=== PATIENT | male | born 1945 | race Caucasian/White ===

== ENCOUNTER 2018-10-19 17:26 | Inpatient (IN) | payer BC, OTHER ==
[2018-10-19 17:39] VITALS: BMI 26.6
[2018-10-19] MEDS ORDERED: SODIUM CHLORIDE 0.9% 1000 ML INFUS.BAG IV ONE (18:45)
--- NOTE | 2018-10-19 18:51 | PDOC ---
Attending Attestation - HPI HPI: 10/19/18 20:18 The patient is a 72 year old male with a significant past medical history of hypertension, hyperlipidemia, diabetes, and arthritis who presents to the emergency department with back pain for 3 months. The patient reports associated knee pain and inability to tolerate weight on his feet when standing. As per the patient's son at bedside, The patient reports some associated urinary frequency for about 1 month. It is noted that the patient went to [facility] earlier today by which they sent him to the ED for further evaluation of possible UTI. The patient received a toradol shot for pain. Denies any other symptoms or complaints. It is noted that the patient recently returned from [facility] 3 weeks ago. - Physicial Exam PE: 10/19/18 20:18 GENERAL: The patient is in no acute distress. HEAD: Normal with no signs of trauma. EYES: PERRLA, EOMI, sclera anicteric, conjunctiva clear. ENT: Ears normal, nares patent, oropharynx clear without exudates. Moist mucous membranes. NECK: Normal range of motion, supple without lymphadenopathy, JVD, or masses. LUNGS: Breath sounds equal, clear to auscultation bilaterally. No wheezes, and no crackles. HEART:(+)tachy. Regular rrhythm, normal S1 and S2 without murmur, rub or gallop. ABDOMEN: Soft, nontender, normoactive bowel sounds. No guarding, no rebound. No masses palpable. EXTREMITIES: Normal range of motion, no edema. No clubbing or cyanosis. No erythema, or tenderness. NEUROLOGICAL: Cranial nerves II through XII grossly intact. Normal speech. No focal neurological deficits. MUSCULOSKELETAL: Back non-tender to palpation, no CVA tenderness SKIN: Warm, Dry, normal turgor, no rashes or lesions noted. Documentation prepared by Misael Faith, acting as district medical examiner for Gale Anderson MD. <Misael Faith - Last Filed: 10/19/18 20:18> - Resident Resident Name: Bernardino Mcnulty - ED Attending Attestation I have performed the following: I have examined & evaluated the patient, The case was reviewed & discussed with the resident, I agree w/resident's findings & plan, Exceptions are as noted - Medical Decision Making 10/19/18 20:06 72 yo M presenting with a complaint of back pain radiating to the leg Was seen in [facility], noted to have a temp 99.5, BP 100/50, elevated WBC, CRIS ( Baseline Cr 0.8) Given toradol for back pain Pt sent to the ER for evaluation of symptoms Pt denies nausea, vomiting, diarrhea No cough No body aches EKG: NSR rate of 76 bpm, axis nml, no st elevation or depression, t waves upright, baseline artifact 10/19/18 20:09 Laboratory Tests 10/19/18 10/19/18 10/19/18 18:56 18:56 18:56 WBC 12.1 H Hgb 15.2 Hct 44.2 Plt Count 168 Sodium 134 L Potassium 4.5 Chloride 98 Carbon Dioxide 26 Anion Gap 10 BUN 30 H Creatinine 1.7 H Random Glucose 291 H Creatine Kinase 313 H Troponin I < 0.02 Lipase 539 H Urine Blood Negative Urine Nitrite Negative Ur Leukocyte Esterase Negative CXR - no consolidation Will place on observation CRIS Dehydration Spinal stenosis with radiculopathy <Gale Anderson - Last Filed: 10/21/18 20:02>
[2018-10-19] MEDS ORDERED: FAMOTIDINE 20 MG/50 ML IVPB 20 MG/50 ML MG IVPB ONE ×2 (19:00→19:09)
[2018-10-19 19:09] LABS: BASO % 0.7 % (0-2.0); EOS % 0.1 % (0-4.5); HEMATOCRIT 44.2 % (35.4-49); HEMOGLOBIN 15.2 GM/dL (11.7-16.9); LYMPH % 9.1 % (8-40); MCH 31.4 pg (25.7-33.7); MCHC 34.4 g/dl (32.0-35.9); MEAN CELL VOLUME 91.4 fl (80-96); MEAN PLT VOLUME 9.9 fl (7.5-11.1); MONO % 5.6 % (3.8-10.2); NEUT % 84.5 % (42.8-82.8); PLATELET COUNT 168 K/MM3 (134-434); RBC 4.84 M/mm3 (4.00-5.60); WHITE BLOOD COUNT 12.1 K/mm3 (4.0-10.0)
--- NOTE | 2018-10-19 19:10 | PDOC ---
History of Present Illness - General History Source: Patient, Family Exam Limitations: Language Barrier (Pt refused loftsman/woman, son at bedside) - History of Present Illness Initial Comments: 10/19/18 19:04 72M with a PMH of HTN, HLD, and DM who presents to the ER with complaints of leg pain. The patient states that he has had years of sciatic back and leg pain. He admits to feeling dysuria over the past 3 days associated with lightheadedness and generalized weakness. He denies any CP, SOB, fever, chills, nausea, vomiting, but admits to diarrhea and lightheadedness. He states that today, his leg pain was different and he felt weak enough that his leg gave way. He otherwise denies any complaints;. <Bernardino Mcnulty - Last Filed: 10/19/18 22:09> <Joaquin Moreno - Last Filed: 10/20/18 02:44> - General Chief Complaint: Pain, Acute Stated Complaint: PCP SENT - [facility] Time Seen by Provider: 10/19/18 18:29 Past History - Past Medical History COPD: No Diabetes: Yes HTN: Yes Hypercholesterolemia: Yes - Immunization History Immunization Up to Date: Yes - Suicide/Smoking/Psychosocial Hx Smoking History: Never smoked Hx Alcohol Use: No Drug/Substance Use Hx: No Substance Use Type: None <Bernardino Mcnulty - Last Filed: 10/19/18 22:09> <Joaquin Moreno - Last Filed: 10/20/18 02:44> - Past Medical History Allergies/Adverse Reactions: Allergies Allergy/AdvReac Type Severity Reaction Status Date / Time No Known Allergies Allergy Verified 10/19/18 19:46 Home Medications: Ambulatory Orders Amlodipine Besylate [Norvasc -] 5 mg PO DAILY 10/19/18 Aspirin [ASA -] 81 mg PO DAILY 10/19/18 Atorvastatin Ca [Lipitor] 20 mg PO DAILY 10/19/18 Diclofenac Sodium [Diclofenac Sodium ER] 100 mg PO DAILY 10/19/18 Gabapentin [Neurontin] 600 mg PO TID 10/19/18 Ibuprofen 600 mg PO Q8H PRN 10/19/18 Lisinopril 10 mg PO DAILY 10/19/18 Metformin HCl [Metformin HCl ER] 500 mg PO BID 10/19/18 Naproxen [Naprosyn -] 500 mg PO Q12H PRN 10/19/18 Oxycodone HCl/Acetaminophen [Percocet 5-325 mg Tablet] 1 tab PO Q4H PRN Review of Systems - Review of Systems Able to Perform ROS?: Yes Comments:: 10/19/18 19:10 GENERAL/CONSTITUTIONAL: Positive for generalized weakness. No fever or chills. HEAD, EYES, EARS, NOSE AND THROAT: No change in vision. No ear pain or discharge. No sore throat. CARDIOVASCULAR: Positive for lightheadedness. No chest pain, palpitations. RESPIRATORY: No cough, wheezing, shortness of breath, or hemoptysis. GASTROINTESTINAL: No nausea, vomiting, diarrhea, constipation, or abdominal pain. GENITOURINARY: Positive for dysuria. No frequency, hematuria, or change in urination. MUSCULOSKELETAL: Positive for low back pain and R knee pain. SKIN: No rash or lesions. NEUROLOGIC: No headache, numbness, tingling, focal weakness, loss of consciousness, or change in strength/sensation. Is the patient limited Armenian proficient: No <Bernardino Mcnulty - Last Filed: 10/19/18 22:09> *Physical Exam - Vital Signs Last Vital Signs Temp Pulse Resp BP Pulse Ox 99.0 F 87 20 114/63 98 10/19/18 17:32 10/19/18 18:30 10/19/18 18:30 10/19/18 18:30 10/19/18 18:30 - Physical Exam Comments: 10/19/18 19:12 GENERAL: Well developed, well nourished. Awake and alert. No acute distress. HEENT: Normocephalic, atraumatic. Hearing grossly normal. Moist mucous membranes. PERRLA, EOMI. No conjunctival pallor. NECK: Supple. Full ROM. No JVD. CARDIOVASCULAR: Regular rate and rhythm. No murmurs, rubs, or gallops. PULMONARY: No evidence of respiratory distress. Lungs clear to auscultation bilaterally. No wheezing, rales or rhonchi. ABDOMINAL: Soft. Non-tender. Non-distended. No rebound or guarding. GENITOURINARY: R CVA tenderness. MUSCULOSKELETAL: TTP over R SI joint. Limited ROM in R leg. EXTREMITIES: No cyanosis. No clubbing. No edema. No calf tenderness or swelling. SKIN: Warm and dry. Normal capillary refill. No rashes. No jaundice. NEUROLOGICAL: Alert, awake, appropriate. Cranial nerves 2-12 grossly intact. Normal speech. Gait is normal without ataxia. PSYCHIATRIC: Cooperative. Good eye contact. Appropriate mood and affect. <Bernardino Mcnulty - Last Filed: 10/19/18 22:09> - Vital Signs Last Vital Signs Temp Pulse Resp BP Pulse Ox 98.9 F 87 16 130/71 98 10/20/18 02:05 10/20/18 02:05 10/20/18 02:05 10/20/18 02:05 10/19/18 20:59 <Joaquin Moreno - Last Filed: 10/20/18 02:44> Moderate Sedation - Procedure Monitoring Vital Signs: Procedure Monitoring Vital Signs Temperature 99.0 F 10/19/18 17:32 Pulse Rate 87 10/19/18 18:30 Respiratory Rate 20 10/19/18 18:30 Blood Pressure 114/63 10/19/18 18:30 O2 Sat by Pulse Oximetry (%) 98 10/19/18 18:30 <Bernardino Mcnulty - Last Filed: 10/19/18 22:09> - Procedure Monitoring Vital Signs: Procedure Monitoring Vital Signs Temperature 98.9 F 10/20/18 02:05 Pulse Rate 87 10/20/18 02:05 Respiratory Rate 16 10/20/18 02:05 Blood Pressure 130/71 10/20/18 02:05 O2 Sat by Pulse Oximetry (%) 98 10/19/18 20:59 <Joaquin Moreno - Last Filed: 10/20/18 02:44> ED Treatment Course - LABORATORY CBC & Chemistry Diagram: 10/19/18 18:56 10/19/18 18:56 <Bernardino Mcnulty - Last Filed: 10/19/18 22:09> - LABORATORY CBC & Chemistry Diagram: 10/19/18 18:56 10/19/18 18:56 - ADDITIONAL ORDERS Additional order review: Laboratory Results 10/19/18 10/19/18 10/19/18 18:56 18:56 18:56 PT with INR 12.40 INR 1.05 Sodium 134 L Potassium 4.5 Chloride 98 Carbon Dioxide 26 Anion Gap 10 BUN 30 H Creatinine 1.7 H Creat Clearance w eGFR 39.93 Random Glucose 291 H Calcium 8.8 Total Bilirubin 1.1 H AST 20 ALT 30 Alkaline Phosphatase 76 Creatine Kinase 313 H Creatine Kinase Index 0.5 CK-MB (CK-2) 1.8 Troponin I < 0.02 Total Protein 6.6 Albumin 3.2 L Lipase 539 H Urine Color Yellow Urine Appearance Clear Urine pH 5.0 Ur Specific [place] 1.024 Urine Protein Negative Urine Glucose (UA) 3+ H Urine Ketones Negative Urine Blood Negative Urine Nitrite Negative Urine Bilirubin Negative Urine Urobilinogen Negative Ur Leukocyte Esterase Negative 10/19/18 18:56 RBC 4.84 MCV 91.4 MCHC 34.4 RDW 14.0 MPV 9.9 Neutrophils % 84.5 H Lymphocytes % 9.1 Monocytes % 5.6 Eosinophils % 0.1 Basophils % 0.7 - Medications Given in the ED: ED Medications Discontinued Medications Generic Name Dose Route Start Last Admin Trade Name Freq PRN Reason Stop Dose Admin Famotidine/Sodium Chloride 20 mg in 50 mls @ 100 mls/hr 10/19/18 19:00 19:09 Pepcid 20 Mg Premixed Ivpb - IVPB 10/19/18 19:29 100 mls/hr ONCE ONE Administration Sodium Chloride 1,000 ml 10/19/18 18:45 10/19/18 19:00 Normal Saline - IV 10/19/18 18:46 1,000 ml ONCE ONE Administration <Joaquin Moreno - Last Filed: 10/20/18 02:44> Medical Decision Making - Medical Decision Making 10/19/18 19:12 The patient is a 72M with a PMH of uncontrolled HTN, DM, HLD who presents to the ER with 3 days of weakness and diarrhea which caused his leg to give way today. Concern for ACS, arrhythmia, and diarrhea causing electrolyte abnormalities. Pending labs and imaging. He went to a UC today and received toradol and currently states that his pain from sciatica is controlled. 10/19/18 20:09 WBC 12. Cr 1.7 indicating CRIS. Giving fluids. Lipase 539 but pt has no abdominal pain but does admit to diarrhea. Will order CXR to look at possible PNA or other causes of weakness/lightheadedness. 10/19/18 21:40 I have endorsed the patient to Dr. Goss for admission. Will order CT of lumbar spine for evaluation of urinary incontinence per admitting attending. <Bernardino Mcnulty - Last Filed: 10/19/18 22:09> *DC/Admit/Observation/Transfer - Discharge Dispostion Decision to Admit order: Yes <Bernardino Mcnulty - Last Filed: 10/19/18 22:09> - Discharge Dispostion Decision to Admit order: No - Transfer to Acute Care Facility Receiving Facility: [facility]. <Joaquin Moreno - Last Filed: 10/20/18 02:44> Diagnosis at time of Disposition: Lightheadedness, CRIS (acute kidney injury) Lower back pain Qualifiers: Chronicity: chronic Back pain laterality: right Sciatica presence: with sciatica Sciatica laterality: sciatica of right side Qualified Code(s): M54.41 - Lumbago with sciatica, right side - Discharge Dispostion Disposition: TRANSFER ACUTE CARE/OTHER HOSP Condition at time of disposition: Guarded
[2018-10-19 19:11] LABS: URINE APPEARANCE CLEAR; URINE BILIRUBIN NEGATIVE (<2.0 mg/dL); URINE COLOR YELLOW; URINE GLUCOSE (UA) 3+ (NEGATIVE); URINE KETONE NEGATIVE (NEGATIVE); URINE LEUK ESTERASE NEGATIVE (NEGATIVE); URINE NITRITE NEGATIVE (NEGATIVE); URINE PROTEIN NEGATIVE (NEGATIVE); URINE UROBILINOGEN NEGATIVE mg/dL (0.2-1.0)
[2018-10-19 19:43] LABS: ALBUMIN 3.2 g/dl (3.4-5.0); ALK PHOS 76 U/L (45-117); ANION GAP 10 MMOL/L (8-16); BILIRUBIN,TOTAL 1.1 mg/dL (0.2-1); BLOOD UREA NITROGEN 30 mg/dL (7-18); CALCIUM 8.8 mg/dL (8.5-10.1); CHLORIDE 98 mmol/L (98-107); CO2 26 mmol/L (21-32); CREATININE 1.7 mg/dL (0.55-1.3); GLUCOSE,RANDOM 291 mg/dL (74-106); LIPASE 539 U/L (73-393); POTASSIUM 4.5 mmol/L (3.5-5.1); SGOT/AST 20 U/L (15-37); SGPT/ALT 30 U/L (13-61); SODIUM 134 mmol/L (136-145); TOT PROT 6.6 g/dl (6.4-8.2)
[2018-10-19 21:42] LABS: INR 1.05 (0.83-1.09); PROTHROMBIN TIME (PATIENT) 12.4 SEC (9.7-13.0)
[2018-10-19] MEDS ORDERED: DOCUSATE SODIUM 100 MG CAPSULE (FP) PO PRN (22:09)
[2018-10-19] MEDS ORDERED: MORPHINE SULFATE 2 MG/ML VIAL IVPUSH PRN (22:13)
--- NOTE | 2018-10-19 22:16 | PN ---
Teaching Attending Note Name of Resident: Declan Celis ATTENDING PHYSICIAN STATEMENT I saw and evaluated the patient. I reviewed the resident's note and discussed the case with the resident. I agree with the resident's findings and plan as documented. SUBJECTIVE: OBJECTIVE: ASSESSMENT AND PLAN: this is a 72 y/o male patient with hx of chronic back HTN, DL, and NIDDM patient recently came from [facility] stating that for the past week, he has been having worse urine loss that the patient cannot hold his urine. today the patient was in the bathroom when his legs buckled and went to the ground the called the son to come to help him out with picking him up, they went to the urgent care and then he was sent to the hospital for further evaluation PE: weakness of the right leg 1/5 motor strength, decreased sensation (possible 2/2 diabetes) back pain and limited range of motion of the right leg 10degress range of motion tenderness at the lower back S1 and S2 RRR lungs CTA with good air entry abdomen soft non-tender. assessment: - admit he patient [place] [facility] [place] - obtain a CT of the lower ext - sonogram of the gallbladder to evaluate for urine retention - urine analysis -patient has elevated WBC without signs of fever or chills -will consider antibiotics if the patient spikes a fever after cultures obtained patient was accepted to [facility] for evaluation for possible spinal cord compression -
--- NOTE | 2018-10-19 22:16 | HP ---
CHIEF COMPLAINT: RLE weakness, pain, urinary incontinence PCP: HISTORY OF PRESENT ILLNESS: 72 yo Male with PMH Chronic back pain, NIDDM, HTN, HLD, admitted with worsening of lower back pain, new onset RLE weakness and pain and urinary incontinence. He states that his back pain has been worsening over the last few months but the weakness and incontinence started about 3 days ago. He states that today he was in the bathroom when his leg buckled and gave out. He lowered himself to the ground and required assistance from his son in order to get up. He initially went to urgent care who recommended he come to the hospital for further evaluation. He denies any fevers or chills, abdominal pain or nausea. Denies any burning on urination or hematuria. He denies any bowel incontinence, though he does endorse diarrhea also during the last 3 days. ER course was notable for: (1) 1L NS (2) Famotidine (3) Recent Travel: recently came from [place] PAST MEDICAL HISTORY: Chronic back pain, NIDDM, HTN, HLD PAST SURGICAL HISTORY: Denies Social History: Smoking: Denies Alcohol: Rarely Drugs: Denies Family History: Allergies No Known Allergies Allergy (Verified 10/19/18 19:46) HOME MEDICATIONS: Home Medications Medication Instructions Recorded Amlodipine Besylate [Norvasc -] 5 mg PO DAILY 10/19/18 Aspirin [ASA -] 81 mg PO DAILY 10/19/18 Atorvastatin Ca [Lipitor] 20 mg PO DAILY 10/19/18 Diclofenac Sodium [Diclofenac 100 mg PO DAILY 10/19/18 Sodium ER] Gabapentin [Neurontin] 600 mg PO TID 10/19/18 Ibuprofen 600 mg PO Q8H PRN 10/19/18 Lisinopril 10 mg PO DAILY 10/19/18 Metformin HCl [Metformin HCl ER] 500 mg PO BID 10/19/18 Naproxen [Naprosyn -] 500 mg PO Q12H PRN 10/19/18 Oxycodone HCl/Acetaminophen 1 tab PO Q4H PRN 10/19/18 [Percocet 5-325 mg Tablet] REVIEW OF SYSTEMS CONSTITUTIONAL: Absent: fever, chills, diaphoresis, generalized weakness, malaise, loss of appetite, weight change HEENT: Absent: rhinorrhea, nasal congestion, throat pain, throat swelling, difficulty swallowing, mouth swelling, ear pain, eye pain, visual changes CARDIOVASCULAR: Absent: chest pain, syncope, palpitations, irregular heart rate, lightheadedness , peripheral edema RESPIRATORY: Absent: cough, shortness of breath, dyspnea with exertion, orthopnea, wheezing, stridor, hemoptysis GASTROINTESTINAL: diarrhea, Absent: abdominal pain, abdominal distension, nausea, vomiting, constipation, melena, hematochezia GENITOURINARY: Absent: dysuria, frequency, urgency, hesitancy, hematuria, flank pain, genital pain MUSCULOSKELETAL: back pain, RLE pain and weakness Absent: myalgia, arthralgia, joint swelling, neck pain SKIN: Absent: rash, itching, pallor HEMATOLOGIC/IMMUNOLOGIC: Absent: easy bleeding, easy bruising, lymphadenopathy, frequent infections ENDOCRINE: Absent: unexplained weight gain, unexplained weight loss, heat intolerance, cold intolerance NEUROLOGIC: urinary incontinence Absent: headache, focal weakness or paresthesias, dizziness, unsteady gait, seizure, mental status changes, PSYCHIATRIC: Absent: anxiety, depression, suicidal or homicidal ideation, hallucinations. PHYSICAL EXAMINATION Vital Signs - 24 hr 10/19/18 10/19/18 10/19/18 17:32 18:30 20:59 Temperature 99.0 F Pulse Rate 90 Pulse Rate [ 87 82 Left Radial] Respiratory 16 20 18 Rate Blood Pressure 91/48 L Blood Pressure 114/63 122/66 [Right Arm] O2 Sat by Pulse 94 L 98 98 Oximetry (%) GENERAL: A&O, no acute distress HEAD: Normocephalic, atraumatic. EARS, NOSE, THROAT: oropharynx clear without exudates. Moist mucous membranes. NECK: supple without lymphadenopathy LUNGS: CTA b/l, no crackles or wheezes HEART: Regular rate and rhythm, normal S1 and S2 without murmur ABDOMEN: Soft, nontender to palpation, normoactive bowel sounds MUSCULOSKELETAL: Tenderness to palpation R lumbar spine EXTREMITIES: 2+ pulses, warm, well-perfused. No peripheral edema. NEUROLOGICAL: Cranial nerves II-XII grossly intact. Normal speech. 2/5 strength RLE, sensation in tact b/l PSYCHIATRIC: Cooperative. Good eye contact. Appropriate mood and affect. Laboratory Results - last 24 hr 10/19/18 10/19/18 10/19/18 18:56 18:56 18:56 WBC 12.1 H RBC 4.84 Hgb 15.2 Hct 44.2 MCV 91.4 MCH 31.4 MCHC 34.4 RDW 14.0 Plt Count 168 MPV 9.9 Absolute Neuts (auto) 10.2 H Neutrophils % 84.5 H Lymphocytes % 9.1 Monocytes % 5.6 Eosinophils % 0.1 Basophils % 0.7 Nucleated RBC % 0 PT with INR 12.40 INR 1.05 Sodium Potassium Chloride Carbon Dioxide Anion Gap BUN Creatinine Creat Clearance w eGFR Random Glucose Calcium Total Bilirubin AST ALT Alkaline Phosphatase Creatine Kinase Creatine Kinase Index CK-MB (CK-2) Troponin I Total Protein Albumin Lipase Urine Color Yellow Urine Appearance Clear Urine pH 5.0 Ur Specific [place] 1.024 Urine Protein Negative Urine Glucose (UA) 3+ H Urine Ketones Negative Urine Blood Negative Urine Nitrite Negative Urine Bilirubin Negative Urine Urobilinogen Negative Ur Leukocyte Esterase Negative 10/19/18 18:56 WBC RBC Hgb Hct MCV MCH MCHC RDW Plt Count MPV Absolute Neuts (auto) Neutrophils % Lymphocytes % Monocytes % Eosinophils % Basophils % Nucleated RBC % PT with INR INR Sodium 134 L Potassium 4.5 Chloride 98 Carbon Dioxide 26 Anion Gap 10 BUN 30 H Creatinine 1.7 H Creat Clearance w eGFR 39.93 Random Glucose 291 H Calcium 8.8 Total Bilirubin 1.1 H AST 20 ALT 30 Alkaline Phosphatase 76 Creatine Kinase 313 H Creatine Kinase Index 0.5 CK-MB (CK-2) 1.8 Troponin I < 0.02 Total Protein 6.6 Albumin 3.2 L Lipase 539 H Urine Color Urine Appearance Urine pH Ur Specific [place] Urine Protein Urine Glucose (UA) Urine Ketones Urine Blood Urine Nitrite Urine Bilirubin Urine Urobilinogen Ur Leukocyte Esterase ASSESSMENT/PLAN: 72 yo Male with PMH Chronic back pain, NIDDM, HTN, HLD, admitted with worsening of lower back pain, new onset RLE weakness and pain and urinary incontinence Urinary incontinence -CT lumbar spine pending to rule out spinal abscess/obvious cord compression -Bladder US to evaluate for urinary retention -UA negative with the exception of glucose which could contribute to increased urinary frequency but less likely incontinence -Elevated BUN/Cr noted Renal US to evaluate for hydro with possibility of retaining urine RLE pain and weakness -Likely acute worsening of lower back pain with possible nerve root impingement -Pain control with long acting morphine 15 mg PO BID -Breakthrough with Morphine 1 mg IV Q4 PRN, discussed with patient to only request prn when having significant breakthrough pain -CT Lumbar spine pending NIDDM -BGMs ACHS -Insulin sliding scale HTN -Norvasc 5 mg PO Daily HLD -Lipitor 20 mg PO HS DVT Prophylaxis -Heparin 5000 units SQ TID FEN -Fluids: none -Electrolytes: No electrolyte abnormalities, BMP in AM -Nutrition: Diabetic/Na controlled diet Disposition Med/Surg Visit type - Emergency Visit Emergency Visit: Yes ED Registration Date: 10/19/18 Care time: The patient presented to the Emergency Department on the above date and was hospitalized for further evaluation of their emergent condition. - New Patient This patient is new to me today: Yes Date on this admission: 10/19/18 - Critical Care Critical Care patient: No
[2018-10-19] MEDS ORDERED: HEPARIN NA (PORCINE) 5,000 UNITS/ML 1ML VIAL SQ SCH (22:30)
[2018-10-19] MEDS ORDERED: HEPARIN NA (PORCINE) 5,000 UNITS/ML 1ML VIAL ONE (22:41)
[2018-10-20] MEDS ORDERED: DEXAMETHASONE SOD PHOSPHATE 4 MG/1 ML VIAL ONE (00:33)
[2018-10-20] MEDS ORDERED: DEXAMETHASONE SOD PHOSPHATE 4 MG/1 ML VIAL IVPUSH SCH (02:00)
[2018-10-20 02:17] VITALS: BP 130/71; PULSE 87; TEMP 98.9
[2018-10-20] MEDS ORDERED: morphine SO4 SUSTAINED ACTING 15 MG TABLET.SA PO SCH ×2 (06:00→10:00)
[2018-10-20] MEDS ORDERED: INSULIN SLIDING SCALE (NOVOLOG) 1 VIAL SQ SCH (07:00)
--- NOTE | 2018-10-20 19:06 | EKG ---
Test Reason : Blood Pressure : / mmHG Vent. Rate : 076 BPM Atrial Rate : 076 BPM P-R Int : 150 ms QRS Dur : 100 ms QT Int : 396 ms P-R-T Axes : 036 038 028 degrees QTc Int : 445 ms NORMAL SINUS RHYTHM NONSPECIFIC T WAVE ABNORMALITY ABNORMAL ECG WHEN COMPARED WITH ECG OF 31-MAY-2009 00:20, VENT. RATE HAS DECREASED BY 73 BPM Confirmed by KARTHIK JOSEPH MD ([id number]) on 10/20/2018 7:06:13 PM Referred By: Confirmed By:KARTHIK JOSEPH MD
--- NOTE | 2018-10-21 08:03 | PN ---
Progress Note, Physician - Current Medication List Current Medications: Active Medications Dexamethasone Sodium Phosphate (Decadron Injection -) 4 mg IVPUSH Q8H-IV [facility] Last Admin: 10/20/18 01:38 Dose: 4 mg Docusate Sodium (Colace -) 100 mg PO Q8H PRN PRN Reason: CONSTIPATION Heparin Sodium (Porcine) (Heparin -) 5,000 unit SQ TID [facility] Last Admin: 10/19/18 22:46 Dose: 5,000 unit Insulin Aspart (Novolog Vial Sliding Scale -) 1 vial SQ ACHS [facility]; Protocol Morphine Sulfate (Morphine Sulfate) 1 mg IVPUSH Q4H PRN PRN Reason: PAIN LEVEL 7 - 10 Morphine Sulfate (Ms Contin -) 15 mg PO BID@0600,1800 [facility] - Objective Vital Signs: Vital Signs Temperature 98.9 F 10/20/18 02:05 Pulse Rate 87 10/20/18 02:05 Respiratory Rate 16 10/20/18 02:05 Blood Pressure 130/71 10/20/18 02:05 O2 Sat by Pulse Oximetry (%) 98 10/19/18 20:59 Labs: CBC, BMP 10/19/18 18:56 10/19/18 18:56 INR, PTT INR 1.05 (0.83-1.09) 10/19/18 18:56
--- NOTE | 2018-10-22 14:57 | DS ---
Physical Exam: SUBJECTIVE: Please see H&P for subjective and objective portion including physical exam OBJECTIVE: LABS HOSPITAL COURSE: Date of Admission:10/19/18 Date of Discharge: 10/22/18 CT lumbar spine noted with possible cord compression around the L4 area. Neurosurgery was unable to be contacted after two attempts via answering service. Pt was transferred to [facility] for further evaluation and management as he would be unable to receive and emergent MRI overnight and neurosurgery was unable to be contacted. Minutes to complete discharge: 35 Discharge Summary Reason For Visit: ACUTE KIDNEY INJURY,LOW BACK PAIN, Condition: Stable - Instructions Diet, Activity, Other Instructions: Transferred to [place] following CT lumbar spine initial read as possible central canal stenosis. In conjunction with urinary incontinence, significant weakness in RLE, and inability to reach neurosurgery after multiple attempts, Transfer was initiated to [facility] prior to admission up to the Med/Surg Floors. Disposition: TRANSFER ACUTE CARE/OTHER HOSP - Home Medications Comprehensive Discharge Medication List: Ambulatory Orders Amlodipine Besylate [Norvasc -] 5 mg PO DAILY 10/19/18 Aspirin [ASA -] 81 mg PO DAILY 10/19/18 Atorvastatin Ca [Lipitor] 20 mg PO DAILY 10/19/18 Diclofenac Sodium [Diclofenac Sodium ER] 100 mg PO DAILY 10/19/18 Gabapentin [Neurontin] 600 mg PO TID 10/19/18 Ibuprofen 600 mg PO Q8H PRN 10/19/18 Lisinopril 10 mg PO DAILY 10/19/18 Metformin HCl [Metformin HCl ER] 500 mg PO BID 10/19/18 Naproxen [Naprosyn -] 500 mg PO Q12H PRN 10/19/18 Oxycodone HCl/Acetaminophen [Percocet 5-325 mg Tablet] 1 tab PO Q4H PRN This patient is new to me today: No Emergency Visit: Yes ED Registration Date: 10/19/18 Care time: The patient presented to the Emergency Department on the above date and was hospitalized for further evaluation of their emergent condition. Critical Care patient: No - Discharge Referral Referred to [facility] No
== END 2018-10-20 03:12 | disposition short-term general hospital (02) | DRG 92 ==
LOC: JER 17:26 → JERBED 21:30
PROVIDERS: ADMIT Internal Medicine; ATTEND Internal Medicine
DX: G95.29 Other cord compression (principal); N17.9 Acute kidney failure, unspecified; M48.061 Spinal stenosis, lumbar region without neurogenic claudication; M54.16 Radiculopathy, lumbar region; I10 Essential (primary) hypertension; E78.5 Hyperlipidemia, unspecified; E11.9 Type 2 diabetes mellitus without complications; E86.0 Dehydration; Z79.84 Long term (current) use of oral hypoglycemic drugs; R32 Unspecified urinary incontinence
CPT/HCPCS: 36415; 71046-TC-FY; 72131-TC; 76775-TC; 76856-TC; 80053; 81003; 82550; 82553; 83690; 84484; 85025; 85610; 87086; 93005; 93010; 99284-25; J1644; J7030